=== PATIENT | male | born 1985 | race Two or more races ===

== ENCOUNTER 2018-07-08 16:09 | Emergency (ER) | payer SELFPAY ==
[~2018-07-08] VITALS: Ht 170.2 cm; Wt 79.8 kg
[2018-07-08] MEDS ORDERED: Benzonatate 100mg Perles ORAL ONE (16:45)
--- NOTE | 2018-07-08 16:46 | NUR ---
ED Nurse Note: PT WALKED IN TO ER TODAY FROM HOME. AOX4. PT C/O ABDOMINAL PAIN, / X 6 DAYS AGO. PT ALSO C/O NAUSEA AND MULTIPLE EPISODES OF VOMITING - LAST EPISODE THIS AM. PT STATES HE HAD DIARRHEA INITIALLY BUT THAT IT HAS GONE AWAY IN THE LAST 3 DAYS. ACTIVE BOWEL SOUNDS IN ALL QUADRANTS. ABDOMEN NONDISTENDED AND NONTENDER TO PALPATION. LAST BM X THIS AM WHICH PT STATES WAS FORMED.
--- NOTE | 2018-07-08 16:47 | Emergency Room Report ---
History of Present Illness General Chief Complaint: General Complaint Source: Patient Present Illness HPI 32-year-old male patient presents the ER complaining of cough, vomiting, diarrhea for the past 6 days. Reports vomiting and diarrhea symptoms have since resolved however they were present up until a few days ago. Denies blood in vomit or stool. Denies abdominal pain. Denies recent travel. Patient states is been able to tolerate p.o. fluids and food since that time, last meal earlier today without vomiting or diarrhea symptoms. Also complaining of cough with sputum. Reports cough is been present for 6 days. Denies hemoptysis. Denies chest pain or shortness of breath. Denies history of asthma or heart attack. Reports sick contacts at home with similar symptoms, states that brother at home was recently diagnosed with pneumonia. Patient reports subjective fever at home, currently afebrile in ER. States that he went to a urgent care clinic 4 days ago and was given a shot for inflammation and a shot of an antibiotic, does not know the names of medications. Denies other aggravating or relieving factors. States his been taking Tussin cough medication without relief of symptoms. Allergies: Coded Allergies: No Known Allergies (Unverified , 07/08/18) Patient History Past Medical History: see triage record Reviewed Nursing Documentation: PMH: Agreed; PSxH: Agreed Nursing Documentation-PMH Past Medical History: No Stated History Review of Systems All Other Systems: negative except mentioned in HPI Physical Exam Vital Signs Date Time Temp Pulse Resp B/P (MAP) Pulse Ox O2 Delivery O2 Flow Rate FiO2 07/08/18 16:17 98.2 79 20 116/78 95 Room Air Sp02 EP Interpretation: reviewed, normal General Appearance: well appearing, no apparent distress, alert, GCS 15, non- toxic Head: normocephalic, atraumatic Eyes: bilateral eye normal inspection, bilateral eye PERRL ENT: hearing grossly normal, normal pharynx, no angioedema, normal voice, uvula midline, moist mucus membranes Neck: full range of motion Respiratory: lungs clear, normal breath sounds, no rhonchi, no respiratory distress, no accessory muscle use, no wheezing, speaking full sentences Cardiovascular #1: regular rate, rhythm, no edema, normal capillary refill Gastrointestinal: normal bowel sounds, non tender, soft, no mass, non-distended , no guarding, no rebound Musculoskeletal: back normal, digits/nails normal, gait/station normal, normal range of motion, non-tender Neurologic: alert, oriented x3, responsive, motor strength/tone normal, sensory intact Psychiatric: mood/affect normal Skin: no rash, normal turgor Medical Decision Making PA Attestation Dr. Ivan is my supervising Physician whom patient management has been discussed with. Diagnostic Impression: Primary Impression: Upper respiratory infection Additional Impression: Vomiting and diarrhea ER Course Pt presents to ED c/o cough, vomiting, diarrhea. DDX considered but are not limited to influenza, viral URI, pneumonia, strep throat, rhinitis, sinusitis, otitis media, otitis externa, viral syndrome, gastritis, enteritis, food poisoning. VITAL SIGNS are WNL, patient is afebrile. ER COURSE: Lungs clear to auscultation, no wheezes, rhonci or rales. patient afebrile. Chest x-ray unremarkable, no focal consolidation, low suspicion for pneumonia, does not require antibiotics at this time. no tonsillar exudates, no pharyngeal erythema, history of cough, no fever, no stridor, uvula midline, low suspicion for peritonsillar abscess. Likely viral etiology of symptoms. Symptomatic treatment. drink plenty of fluids. Salt water gargles for sore throat. Followup with PCP for further treatment and/or referral as needed. No abdominal TTP, negative ROvsing, normal bowel sounds. PE benign. Patient informed of likely viral cause of symptoms. No fever, no blood in stool, no recent travel or hospitalizations, does not require abx treatment at this time. No signs of dehydration, moist mucus membranes, cap refil <2seconds, normal skin turgor. Patient reports eating and drinking normally. Patient instructed on BRAT diet. Patient instructed to remain hydrated, drink plenty of fluids. Patient questions asked and answered. Patient states understanding and agreement to treatment plan. DISCHARGE At this time pt is stable for d/c to home. Patient is resting comfortably, in no acute distress, nontoxic appearing. Patient to take medications as instructed Will provide with patient care instructions and any necessary prescriptions. Care plan and follow-up instructions provided. Patient instructed to follow-up with primary care provider in 3 - 5 days. Patient questions asked and answered. Patient reports understanding and agreement to treatment plan. ER precautions given. Patient instructed to return to ER immediately for any new or worsening of symptoms including but not limited to increasing SOB, persistent fever, intractable vomiting. - Please note that this Emergency Department Report was dictated using [email or web address] line repaire[employer] technology software, occasionally this can lead to erroneous entry secondary to interpretation by the dictation equipment. Chest X-Ray Diagnostic Results Chest X-Ray Diagnostic Results : Chest X-Ray Ordered: Yes # of Views/Limited/Complete: 1 View Indication: Chest Pain EP Interpretation: Yes PA Xray: Interpretation reviewed, by supervising MD, and agrees with findings. Interpretation: no consolidation, no effusion, no pneumothorax, no acute cardiopulmonary disease Impression: No acute disease SHAHRIAR [employer] Text Jose Carlos Boyer PA-C Last Vital Signs Date Time Temp Pulse Resp B/P (MAP) Pulse Ox O2 Delivery O2 Flow Rate FiO2 07/08/18 16:17 98.2 79 20 116/78 95 Room Air Disposition: HOME, SELF-CARE Condition: Stable Scripts Acetaminophen* (TYLENOL EXTRA STRENGTH*) 500 Mg Tablet 500 MG ORAL Q8H PRN for Prn Headache/Temp > 101, #30 TAB 0 Refills Prov: Luciano Boyer 07/08/18 Benzonatate* (TESSALON PERLE*) 100 Mg Capsule 100 MG ORAL THREE TIMES A DAY, #20 PERLE Prov: Luciano Boyer 07/08/18 Patient Instructions: Diarrhea, Adult, [id number], Nausea and Vomiting, Adult , [id number], Upper Respiratory Infection, Adult, [id number] Additional Instructions: Followup with primary care provider in 3 -5 days. Avoid spicy foods, avoid dairy foods. BRAT diet: bananas, rice, apple sauce, toast. Consider Immodium for diarrhea and Tylenol for pain symptoms. Take medications as directed. Patient questions asked and answered. ER precautions given, patient instructed to return to ER immediately for any new or worsening of symptoms. Luciano Boyer Jul 08, 2018 16:47
[2018-07-08 16:48] VITALS: BP 118/82
--- NOTE | 2018-07-08 16:50 | NUR ---
ED Nurse Note: XRAY AT BEDSIDE.
--- NOTE | 2018-07-08 16:53 | NUR ---
ED Nurse Note: PT WAS DISCHARGED FROM CLINIC X 3 DAYS AGO WITH RX FOR AZITHROMYCIN 250MG TABLETS. PT STATES SYMPTOMS UNRELIEVED BY MEDICATIONS DESPITE COMPLIANCE.
[2018-07-08] MEDS ORDERED: TYLENOL EXTRA500 MG ORAL (17:06)
[2018-07-08] MEDS ORDERED: TESSALON PERLE100 MG ORAL (17:06)
--- NOTE | 2018-07-08 17:09 | Diagnostic Imaging Report ---
Indication: Dyspnea Comparison: None A single view chest radiograph was obtained. Findings: Cardiomediastinal appearance is within normal limits for age. The lungs are clear. Pulmonary vascularity is appropriate. The diaphragmatic contour is smooth and costophrenic angles are sharp. No pleural effusions are identified. The bones are unremarkable. Impression: No acute findings
[2018-07-08 17:16] VITALS: BP 122/86
--- NOTE | 2018-07-08 17:17 | NUR ---
ED Nurse Note: PT LAYING PEACEFULLY IN BED IN NAD. AOX4. PRESCRIPTIONS AND DISCHARGE PAPERWORK EXPLAINED TO PT. PT VERBALIZES UNDERSTANDING AND ALL QUESTIONS ANSWERED. PRESCRIPTIONS AND DISCHARGE PAPERWORK GIVEN TO PT AND ID WRISTBAND REMOVED. PT WALKED OUT OF ER WITH STEADY GAIT AND ALL BELONGINGS.
== END 2018-07-08 17:16 | disposition home or self-care (01) ==
LOC: EMR 16:30
DX: J06.9 Acute upper respiratory infection, unspecified (principal); R19.7 Diarrhea, unspecified; R11.10 Vomiting, unspecified
CPT/HCPCS: 71045; 99283